=== PATIENT | female | born 1940 | race Caucasian/White ===

== ENCOUNTER → 2016-09-27 | Outpatient (CLI) | payer MEDICARE, BC ==
[~2016-09-27] MED LIST: ACTOS15 MG PO; ALPRAZOLAM PO; BUSPAR PO; CALCIUM 600 MG1 EACH PO; CERTAGEN PO; CLARINEX5 MG PO; COUMADIN PO; CREON DR 12,001 EAC1 PO; CRESTOR PO; EFFEXOR PO; EXCEDRIN PM 501 EAC1 PO; FAMOTIDINE PO; FISH OIL 1,0001 CAP PO; HYDROCHLOROTH12.5 M1 PO; JANTOVEN2 MG PO; LACTAID3000 UNI1 PO; LACTINEX T1 TAB.CHEW PO; LEVEMIR SUBQ; LIPITOR PO; LISINOPRIL PO; LOMOTIL TABLET1 TAB PO; MUCINEX DM1 TAB.SR . PO; MULTI-VITAMIN1 TAB PO; NEXIUM PO; NEXIUM20 MG PO; NIASPAN PO; NOVOLOG100 U/M2 SUBQ; NOVOLOG100 UNITS/ SUBQ; OYSTER CALCIUM500 MG PO; PHENERGAN PO; PHENERGAN PR; POSTURE600 MG PO; PREMARIN PO; PROTONIX PO; SYNTHROID PO; TOPAMAX PO; TOPROL XL PO; TOPROL XL50 MG PO; TRICOR PO; TRILIPIX135 MG PO; ULTRACET TABLET1 TAB PO; VICODIN 5/500 T1 TAB PO; VITAMIN C PO; VITAMIN D 4001 UDTAB PO; VITAMIN D400 UNI2 PO; ZOCOR20 MG PO; [UNRECOGNIZED DRUG - OTHER] PO
--- NOTE | ~2016-09-27 | CR181 ---
[facility] A Service of [facility] & [facility] RADIOLOGY TEXT RESULTS PATIENT: KACIE QUEVEDO LOCATION: [facility] : 44 UNIT #: [id number] AGE: [address]: ZAINAB DAVE SEX: F ORDER DR: [id number] [facility] [address] [place], [place] [address] [id number] O MR#: [id number] Acc #: [id number] NAME: KACIE QUEVEDO : 1940 SEX: F STUDY DATE/TIME: 09/27/2016 UNIT: [facility] ROOM: STUDY DESCRIPTION: CR Lumbar Spine 2 or 3 Views Attending Physician: Sudhir Kinsey Referring Physician: Sudhir Kinsey Ordering Physician: Sudhir Kinsey Primary Care Physician: Amada Llanes M.D. MEDICAL IMAGING REPORT This report is preliminary unless electronic signature is present EXAM Lumbar spine series 09/27/2016 1356 hours HISTORY 76-year-old woman with low back pain, right-sided back pain for 2 months. No reported injury. COMPARISON CT abdomen and pelvis with sagittal and coronal reconstructions 09/08/2013. FINDINGS AP and lateral views of the lumbar spine and a cone lateral view of the lumbosacral junction were performed. The overall bone density is within normal limits. Vertebral body and disc heights are normal. There is very mild facet arthropathy at L5-S1. No fracture or malalignment. IMPRESSION No fracture, malalignment or significant disc height loss. Mild facet arthropathy at the lumbosacral junction, similar to CT scan 09/08/2013. Dictated by... Mariam Gardner M.D. THIS IS AN ELECTRONICALLY VERIFIED REPORT Mariam Gardner M.D. at 09/30/2016 10:35 AM ANGELA/razia TD: 09/27/2016 17:43 JOB #: [id number] MEDICAL IMAGING REPORT Page 1 of 1 COPY
== END | disposition home or self-care (01) ==
LOC: CRAD 13:35
DX: M54.5 Low back pain (principal); M46.96 Unspecified inflammatory spondylopathy, lumbar region
CPT/HCPCS: 72100